=== PATIENT | female | born 1995 | race Caucasian/White ===

== ENCOUNTER 2019-06-05 16:01 | Emergency (ER) | payer SELFPAY ==
--- NOTE | 2019-06-05 17:11 | ED ---
Nausea/Vomiting/Diarrhea HPI - HPI Summary HPI Summary: 24-year-old female presents to the emergency department today complaining of nausea, constipation, body aches," brain fog" for the last week. Patient states she has been renting from an [employer] which was recently tested positive for Escherichia coli in the water. Patient states approximately one week ago she was given antibiotics by her primary care provider for possible infectious diarrhea and since the patient has transitioned to bottled water. Patient states she feels constipated and is having one bowel movement every other day however this is her normal. Patient states she believes she has had a fever however she is afebrile upon arrival in the emergency department. There are no signs of hypovolemia. Patient denies pus or blood in her stools. Patient denies abdominal pain at this time. Patient otherwise feels well and denies chest pain, abdominal pain, pain with urination, vomiting. Patient states she has been taking Phenergan and Zofran for her symptoms. - History of Current Complaint Chief Complaint: EDGeneral Stated Complaint: POSS E-COLI FROM WATER PER MOM Time Seen by Provider: 06/05/19 16:31 Hx Obtained From: Patient Onset/Duration: Gradual Onset Severity Initially: Mild Severity Currently: Mild Pain Intensity: 6 Pain Scale Used: 0-10 Numeric Diarrhea Presence: No - Allergies/Home Medications Allergies/Adverse Reactions: Allergies Allergy/AdvReac Type Severity Reaction Status Date / Time gluten Allergy GI Upset Verified 06/05/19 16:14 latex Allergy Rash Verified 06/05/19 16:14 lidocaine Allergy Rash Verified 06/05/19 16:14 soy Allergy Itching Verified 06/05/19 16:14 thimerosal Allergy Fever Verified 06/05/19 16:14 Home Medications: Home Medications Ondansetron TAB* [Zofran 4 MG Tab*] 4 mg PO Q6H PRN 06/05/19 [History Confirmed 06/05/19] Promethazine 25 mg TAB [Phenergan 25 mg TAB] 25 mg PO Q6H PRN 06/05/19 [History Confirmed 06/05/19] PMH/Surg Hx/FS Hx/Imm Hx Infectious Disease History: No Infectious Disease History: Denies: Traveled Outside the [place] in Last 30 Days - Social History Alcohol Use: Rare Substance Use Type: Reports: None Smoking Status (MU): Never Smoked Tobacco Review of Systems Positive: Fatigue Eyes: Negative ENT: Negative Cardiovascular: Negative Respiratory: Negative Gastrointestinal: Negative Genitourinary: Negative Musculoskeletal: Negative Skin: Negative Neurological/Mental Status: Negative Psychological: Normal All Other Systems Reviewed And Are Negative: Yes Physical Exam Triage Information Reviewed: Yes Vital Signs On Initial Exam: Initial Vitals Temp Pulse Resp BP Pulse Ox 98.9 F 107 16 156/102 100 06/05/19 16:09 06/05/19 16:09 06/05/19 16:09 06/05/19 16:09 06/05/19 16:09 Vital Signs Reviewed: Yes Appearance: Positive: Well-Appearing, No Pain Distress, Well-Nourished Skin: Positive: Warm, Skin Color Reflects Adequate Perfusion Eyes: Positive: EOMI, LUANA ENT: Positive: Hearing grossly normal Respiratory/Lung Sounds: Positive: Clear to Auscultation, Breath Sounds Present Cardiovascular: Positive: RRR, S1, S2 Abdomen Description: Positive: Nontender, Soft Bowel Sounds: Positive: Present Musculoskeletal: Positive: Strength/ROM Intact Neurological: Positive: Sensory/Motor Intact, Alert, Oriented to Person Place, Time, Normal Gait, Facial Symmetry, Speech Normal Psychiatric: Positive: Normal, Affect/Mood Appropriate AVPU Assessment: Alert Procedures - Sedation Patient Received Moderate/Deep Sedation with Procedure: No Diagnostics - Vital Signs Vital Signs Temp Pulse Resp BP Pulse Ox 06/05/19 16:09 98.9 F 107 16 156/102 100 - Laboratory Lab Statement: Any lab studies that have been ordered have been reviewed, and results considered in the medical decision making process. Naus/Vom/Diarrhea Course/Dx - Course Course Of Treatment: Patient was evaluated in the emergency department today for contaminated water. Vitals noted and stable. No evidence of infectious diarrhea at this time and no evidence of hypovolemia. Patient had complaints of constipation however this is what the patient states is her normal. Patient was discharged to outpatient follow-up as there is no evidence of acute medical pathology requiring intervention at this time. - Differential Dx/Diagnosis Differential Diagnoses - Female: Other - Contaminated water Provider Diagnosis: Constipation Condition At Discharge: Stable Discharge ED - Sign-Out/Discharge Documenting (check all that apply): Patient Departure - Discharge Plan Condition: Stable Disposition: HOME Patient Education Materials: Acute Nausea and Vomiting (ED) Forms: *Work Release Referrals: [facility] [Outside] - 3 Days No Primary Care Phys,NOPCP [Primary Care Provider] - Additional Instructions: You were seen in the emergency department today due to possible contaminated water. It appears there is no evidence of infectious diarrhea at this time. Please continue to use bottled water. I also encourage you to take probiotics or consume food with probiotics in them such as yogurt and sauerkraut. Please follow-up in 3-4 days with your primary care provider for further evaluation and management. Please return to the emergency department immediately if you develop any new or worsening symptoms such as significant fever, pus in your stool, significant amounts of blood in your stool, if you're having more than 1 watery bowel movement per hour. - Billing Disposition and Condition Condition: STABLE Disposition: Home
[2019-06-05 18:28] VITALS: BP 155/104
== END 2019-06-05 18:24 | disposition home or self-care (01) ==
LOC: ED 16:01
DX: K59.00 Constipation, unspecified (principal); R53.83 Other fatigue
CPT/HCPCS: 99282